=== PATIENT | male | born 1970 | race Caucasian/White ===

== ENCOUNTER 2017-05-10 18:28 | Emergency (ER) | payer OTHER ==
[~2017-05-10 18:28] MED LIST: ALBUTEROL 0.5ML INH; BACTRIM DS TABL1 TA1 PO; CIPRO PO; KEFLEX PO; KEFLEX500 MG PO; LEVAQUIN750 MG PO; LORTAB 5/500 TA1 TA1 PO; NO MEDICATIONS; PREDNISONE1 MG PO; ROBITUSSIN100 MG/52 PO; TESSALON200 MG PO; VICODIN 5/1 TAB 5/50 PO; VICODIN 5/500 T1 TAB PO; VOLTAREN75 MG PO
== END 2017-05-10 21:00 | disposition left against medical advice (07) ==
LOC: CED 18:28
DX: S50.811A Abrasion of right forearm, initial encounter (principal); Z86.73 Personal history of transient ischemic attack (TIA), and cerebral infarction without residual deficits; Z23 Encounter for immunization; X58.XXXA Exposure to other specified factors, initial encounter; Y92.9 Unspecified place or not applicable
CPT/HCPCS: 90471; 90715; 96372; 99283; J1885

== ENCOUNTER 2017-05-12 20:38 | Emergency (ER) | payer OTHER ==
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
== END 2017-05-12 22:36 | disposition home or self-care (01) ==
LOC: SED 20:38
DX: S52.611A Displaced fracture of right ulna styloid process, initial encounter for closed fracture (principal); J45.909 Unspecified asthma, uncomplicated; W22.8XXA Striking against or struck by other objects, initial encounter; Y92.009 Unspecified place in unspecified non-institutional (private) residence as the place of occurrence of the external cause
CPT/HCPCS: 29260; 73090; 73110; 73130; 96372; 99283; J1885